=== PATIENT | female | born 1990 | race African-American/Black ===

== ENCOUNTER 2022-07-09 13:37 | Emergency (ER) | payer MEDICAID ==
[~2022-07-09] VITALS: Ht 167.6 cm; Wt 68.0 kg
[2022-07-09] MEDS ORDERED: ACETAMINOPHEN 325MG TABLET PO ONE (15:00)
[2022-07-09] MEDS ORDERED: KETOROLAC 30MG/ML VIAL IM ONE (15:00)
[2022-07-09 15:20] VITALS: BP 126/88
[2022-07-09 15:37] LABS: CLARITY URINE CLOUDY (CLEAR); COLOR URINE YELLOW (YELLOW); KETONES URINE NEGATIVE (NEGATIVE); LEUKOCYTE ESTERASE URINE 3+ (NEGATIVE); NITRITE URINE NEGATIVE (NEGATIVE); OCCULT BLOOD URINE 2+ (NEGATIVE); PROTEIN URINE 1+ (NEGATIVE); SPECIFIC GRAVITY URINE 1.015 (1.005-1.030); UROBILINOGEN URINE 0.2 E.U./dL (0.2-1.0)
[2022-07-09] MEDS ORDERED: CEPH500T MT (15:55)
[2022-07-09] MEDS ORDERED: CEPHALEXIN 250MG CAPSULE PO NR (16:00)
== END 2022-07-09 16:09 | disposition home or self-care (01) ==
LOC: ER 13:37
DX: N39.0 Urinary tract infection, site not specified (principal); B96.89 Other specified bacterial agents as the cause of diseases classified elsewhere; R82.71 Bacteriuria; B96.6 Bacteroides fragilis [B. fragilis] as the cause of diseases classified elsewhere
CPT/HCPCS: 81003; 81025; 87077; 87086; 87186; 96372; 99283; J1885